=== PATIENT | male | born 1945 | race Caucasian/White ===

== ENCOUNTER 2019-06-07 22:15 | Emergency (ER) | payer MEDICARE, OTHER ==
--- NOTE | 2019-06-07 22:34 | ED Physician Documentation ---
General Adult - HISTORIAN Historian: patient - HPI Stated Complaint: sinus congestion, stomach ache, chills Chief Complaint: General Adult Onset: days ago Timing: still present Severity: moderate Further Comments: yes (Pt is a 73 yo male with chills, sinus pressure, stomach ache. Sx have come over over the course of a week. Pt has been using Astelin for his sinuses and wonders if sx are due to that.) - ROS CONST: chills EYES/ENT: nasal drainage, nasal congestion CVS/RESP: none GI/: abdominal pain MS/SKIN/LYMPH: none - PAST HX Past History: hypertension, other (GERD) Surgeries/Procedures: other (ortho surgery) Allergies/Adverse Reactions: Allergies Allergy/AdvReac Type Severity Reaction Status Date / Time indapamide Allergy Verified 06/07/19 22:25 prednisone Allergy Verified 06/07/19 22:25 Home Medications: Ambulatory Orders Medication Instructions Recorded Aspirin [Kaia] 81 mg PO DAILY 06/07/19 Azithromycin 250 mg PO DAILY #5 tablet 06/07/19 Fexofenadine HCl [Ivet] 180 mg PO DAILY 06/07/19 Fluocinonide 1 inh INH BID 06/07/19 Quinapril HCl 40 mg PO DAILY 06/07/19 Ranitidine HCl [Zantac] 150 mg PO PRN PRN 06/07/19 amLODIPine BESYLATE [Norvasc] 5 mg PO DAILY 06/07/19 - SOCIAL HX Smoking History: non-smoker Alcohol Use: occasionally - FAMILY HX Family History: No - REVIEWED ASSESSMENTS Nursing Assessment Reviewed: Yes Vitals Reviewed: Yes Progress - Progress Progress: Azitrhomycin 500 mg po in ER D/c instructions: Rx Azithromycin 250 mg. Take one by mouth once daily for 5 days. Nasal washes 1 or 2 times daily as tolerated. General Adult Physical Exam - PHYSICAL EXAM GENERAL APPEARANCE: mild distress EENT: pharynx normal, other (sinus pressure) NECK: normal inspection, supple RESPIRATORY: no resp distress, chest non-tender, breath sounds normal CVS: reg rate & rhythm, heart sounds normal ABDOMEN: soft, no organomegaly, normal bowel sounds BACK: normal inspection, no CVA tenderness SKIN: warm/dry, normal color EXTREMITIES: non-tender, normal range of motion, no evidence of injury, no edema NEURO: oriented X3, motor nml, sensation nml Discharge Clincal Impression: Sinusitis Qualifiers: Sinusitis location: maxillary Chronicity: acute Recurrence: not specified as recurrent Qualified Code(s): J01.00 - Acute maxillary sinusitis, unspecified Referrals: Primary Doctor,No [Primary Care Provider] - Condition: Stable Disposition: 01 HOME, SELF-CARE Decision to Admit: NO Decision Time: 23:32
[2019-06-07] MEDS ORDERED: 0.9 % SODIUM CHLORIDE 1,000 ML IV ONE (22:44)
[2019-06-07] MEDS ORDERED: AZITHROMYCIN 250 MG TABLET PO ONE (23:28)
[2019-06-08 00:48] VITALS: BP 141/75
[2019-06-08 07:26] LABS: BASOPHILS % 0.3 % (0.0-1.5); NEUTROPHILS # 4.3 # k/uL (1.4-7.7); eGFR (Non-African) > 60
== END 2019-06-08 | disposition home or self-care (01) ==
LOC: ED 22:15
DX: J01.00 Acute maxillary sinusitis, unspecified (principal)
CPT/HCPCS: 80053; 83690; 85025; 96360; 99282; 99284; J7030; S1016